=== PATIENT | male | born 1985 | race Caucasian/White ===

== ENCOUNTER 2016-08-01 17:11 | Emergency (ER) | payer OTHER ==
[~2016-08-01] VITALS: Ht 167.6 cm; Wt 102.1 kg
[2016-08-01 17:29] VITALS: BP 115/64
== END 2016-08-01 17:44 | disposition home or self-care (01) ==
LOC: ER 17:15
DX: R07.89 Other chest pain (principal)

== ENCOUNTER 2017-02-14 17:40 | Emergency (ER) | payer OTHER ==
[~2017-02-14] VITALS: Ht 167.6 cm; Wt 97.5 kg
[2017-02-14 18:19] VITALS: BP 113/83
[2017-02-14 19:20] LABS: Basophils # (auto) 0.1 uL; Basophils % (auto) 0.4 % (0.0-2.0); Eosinophils # (auto) 0.2 uL; Eosinophils % (auto) 1.7 % (0.0-7.0); Hematocrit 46.9 % (41.0-53.0); Hemoglobin 16.3 g/dL (13.5-17.5); Lymphocytes # (auto) 4.3 uL; Lymphocytes % (auto) 29.1 % (10.0-50.0); Mean Corpuscular Hemoglobin 31.1 pg (28.0-32.0); Mean Corpuscular Hgb Conc. 34.7 g/dL (32.0-36.0); Mean Corpuscular Volume 89.6 fL (80.0-100.0); Mean Platelet Volume 8.8 fL (6.9-10.8); Monocytes # (auto) 0.7 uL; Monocytes % (auto) 4.5 % (0.0-12.0); Neutrophils # (auto) 9.5 uL; Neutrophils % (auto) 64.3 % (37.0-80.0); Nucleated Red Blood Cells % 0.1 %; Platelet Count (auto) 235 10^3/uL (140-450); Red Cell Distribution Width 12.9 % (11.8-14.3); White Blood Cell 14.7 10^3/uL (4.4-10.8)
[2017-02-15] MEDS ORDERED: LEVOFLOXACIN 250 MG TAB PO ONE (02:30)
== END 2017-02-15 03:05 | disposition home or self-care (01) ==
LOC: ER 17:48
DX: L03.012 Cellulitis of left finger (principal)
CPT/HCPCS: 36415; 73130; 85025